=== PATIENT | female | born 1995 | race Caucasian/White ===

== ENCOUNTER 2023-01-15 00:26 | Outpatient (CLI) | payer MEDICAID, SELFPAY ==
[2023-01-15 00:41] VITALS: BP 100/55; PULSE 77; RESP 16; TEMP 36.6
[2023-01-15 00:42] VITALS: PULSE 83; O2SAT 99
[2023-01-15] MEDS: ACETAMINOPHEN 500 MG TABLET 1000 MG PO (01:12)
[2023-01-15] MEDS: LACTATED RINGERS 1000 ML IV (01:30)
== END 2023-01-15 04:00 | disposition home or self-care (01) ==
LOC: OB OUT 00:27 → OB 00:28
PROVIDERS: Visit Provider Obstetrics & Gynecology
DX: O47.00 False labor before 37 completed weeks of gestation, unspecified trimester (principal)
CPT/HCPCS: 99213; A9270; J7120